=== PATIENT | male | born 1965 | race Caucasian/White ===

== ENCOUNTER 2024-10-19 18:11 | Emergency (ER) | payer BC, SELFPAY ==
[2024-10-19 18:46] VITALS: BP 134/81; PULSE 68; RESP 16; TEMP 36.6; O2SAT 99
--- NOTE | 2024-10-19 18:50 | ED.SKABFB ---
HPI - Skin/Abscess/Foreign Bdy General Chief complaint: Skin/Abscess/Foreign Body Stated complaint: Skin Irritation Lower Stomach Time Seen by Provider: 10/19/24 19:16 Source: patient and RN notes reviewed Mode of arrival: ambulatory Limitations: no limitations History of Present Illness HPI narrative: 58-year-old male presents with concern for redness, warmth at the site where he removed his insulin pump. Reports he removed it 2 days ago and noticed the redness yesterday. He reports it is slightly tender when pushed on. Denies fluctuation or drainage. She denies body aches, chills, fever, sweat, general malaise complaint: other (Redness) Related Data Home Medications ?Medication ?Instructions ?Recorded ?Confirmed ?Last Taken ?Type atorvastatin 80 mg tablet mg 10/19/24 Unknown History escitalopram oxalate 20 mg tablet mg 10/19/24 Unknown History etanercept 50 mg/mL (1 mL) mg subcut 10/19/24 Unknown History subcutaneous pen injector (Enbrel SureClick) folic acid 1 mg tablet 10/19/24 Unknown History insulin lispro 100 unit/mL 10/19/24 Unknown History subcutaneous solution (Humalog U-100 Insulin) methotrexate sodium 2.5 mg tablet mg 10/19/24 Unknown History Allergies Allergy/AdvReac Type Severity Reaction Status Date / Time No Known Allergies Allergy Verified 10/19/24 19:04 Review of Systems Review of Systems: CONSTITUTIONAL: Denies malaise, chills, sweats, or fever. EYES: Denies redness, or discharge. ENT: Denies rhinorrhea, congestion, swollen lips, swollen tongue CARDIOVASCULAR: Denies chest pain, palpitations, or edema. RESPIRATORY: Denies cough or dyspnea. GASTROINTESTINAL: Denies abdominal pain, nausea, vomiting SKIN: Reports redness, warmth, tenderness to the left abdomen MUSCULOSKELETAL: Denies joint pain or myalgia. NEUROLOGIC: Denies headache. All systems reviewed & are unremarkable except as noted in HPI and below PMFSH Comments At time of signature, agree with nursing past medical, surgical, social and family history. There is no relevant family history pertinent to the presenting complaint Exam Narrative: GENERAL: Well-appearing, well-nourished, and in no acute distress. HEAD: Normocephalic, atraumatic. EYES: PERRLA, conjunctivae clear, and EOMI. ENT: Mucous membranes moist. Oropharynx without edema, erythema or lesions. NECK: Supple. No lymphadenopathy CHEST: Clear to auscultation. No respiratory distress. HEART: Regular rate and rhythm. SKIN: Warm, dry. Approximately 8 cm x 6 cm area of erythema, warmth, tenderness with induration in the center. No fluctuation noted NEURO: Alert and oriented x3. PSYCH: Normal mood and affect Course Course Emergency Course: Patient is aware of diagnosis, understands and agrees to treatment plan. Anticipatory guidance given. Patient agrees to follow-up as directed and is aware of reasons to seek care at the emergency department. Portions of this record may have been created with voice recognition software Level of Care: Express Care Visit Vital Signs Vital signs: Vital Signs Temperature 97.8 F 10/19/24 18:46 Pulse Rate 68 10/19/24 18:46 Respiratory Rate 16 10/19/24 18:46 Blood Pressure 134/81 10/19/24 18:46 Pulse Oximetry 99 10/19/24 18:46 Temperature 97.8 F 10/19/24 18:46 Pulse Rate 68 10/19/24 18:46 Respiratory Rate 16 10/19/24 18:46 Blood Pressure 134/81 10/19/24 18:46 Pulse Oximetry 99 10/19/24 18:46 Reviewed. MDM - Skin/Abscess/Foreign Bdy MDM Narrative Medical decision making narrative: Does not appear at this time to be erythema multiforme, bullous, SJS, TEN; no evidence at this time to suggest RMSF, endocarditis or Lyme disease; patient looks well, nontoxic and is tolerating oral intake; no neurologic signs or symptoms; no headache, photophobia or neck pain; afebrile; appropriate for initial outpatient treatment; discussed the importance of follow-up, patient agrees; question, viral exanthema, contact dermatitis, allergic dermatitis, eczema, urticaria, [ xx ]. No soft palate or uvula edema, no tongue, lip edema or other mucosal involvement, no respiratory compromise, no stridor, no wheezing, no wheezing, no history of syncope, no hypotension, no nausea, vomiting, or diarrhea. Instructed patient to go to nearest ER immediately for any worsening symptoms including but not limited to: fever, spreading rash, pain, sore throat, headache, dizziness, chest pain, trouble breathing, or any symptoms concerning to the patient. Critical Care Time Critical Care Time Critical Care Time: No Discharge Plan Discharge Clinical Impression: Cellulitis Patient Disposition: Home, Self-Care Condition: Stable Instructions: Antibiotic Form, Cellulitis (ED) Additional Instructions: Please follow up with your Primary Care Doctor within 48-72 hours - call for an appointment. Rest and elevate affected area; apply moist heat 3-4 times daily for 10-15 minutes. Take Motrin 600mg every 8 hours with food for pain. Please take Antibiotics as directed. If you experience any worsening redness, swelling, streaking (red lines), fever or chills please go to the ER Patient Language: Danish Prescriptions: New cephalexin 500 mg capsule 500 mg PO QID 10 Days Qty: 40 0RF No Action atorvastatin 80 mg tablet methotrexate sodium 2.5 mg tablet folic acid 1 mg tablet insulin lispro [Humalog U-100 Insulin] 100 unit/mL solution escitalopram oxalate 20 mg tablet Enbrel SureClick 50 mg/mL (1 mL) pen injector SUBCUT Follow-up/Referrals: Gomez,Drew Horton MD [Primary Care Provider] - Time of Disposition: 19:22
== END 2024-10-19 19:23 | disposition home or self-care (01) ==
PROVIDERS: Emergency Provider Nurse Practitioner; PCP Internal Medicine Endocrinology, Diabetes & Metabolism
DX: L03.311 Cellulitis of abdominal wall (principal)
CPT/HCPCS: 99203; G0463

== ENCOUNTER 2024-11-15 08:20 | Emergency (ER) | payer BC, SELFPAY ==
--- NOTE | ~2024-11-15 | XR_ITS ---
EXAMINATION: XR chest 2V DATE: 11/15/2024 08:47 INDICATION: Cough and fever TECHNIQUE: PA and lateral views of the chest were obtained. COMPARISON: None FINDINGS: The lungs are clear with no focal airspace opacities, pulmonary edema, pleural effusion or pneumothor ax. The cardiomediastinal silhouette is normal. Mild thoracic spondylosis. IMPRESSION: 1. No acute cardiopulmonary disease. Reviewed, dictated and finalized at location B. NE ENGINE MACHINIST
--- NOTE | 2024-11-15 08:22 | ED_ITS ---
HPI - URI/Sore Throat General Chief Complaint: Upper Respiratory Infection Stated Complaint: Upper Respiratory Infection Time Seen by Provider: 11/15/24 08:28 Source: patient, RN notes reviewed and old records reviewed Mode of arrival: ambulatory Limitations: no limitations History of Present Illness HPI Narrative: 59-year-old male presents to the [facility] with sinus congestion, cough, decreased appetite. States that he has been running fevers since morning. No treatment prior to arrival. Reports recent travel via airplane. Onset (ago): day(s) (4) Treatments prior to arrival: none Related Data Home Medications ?Medication ?Instructions ?Recorded ?Confirmed ?Last Taken ?Type atorvastatin 80 mg tablet mg 10/19/24 Unknown History escitalopram oxalate 20 mg tablet mg 10/19/24 Unknown History etanercept 50 mg/mL (1 mL) mg subcut 10/19/24 Unknown History subcutaneous pen injector (Enbrel SureClick) folic acid 1 mg tablet 10/19/24 Unknown History insulin lispro 100 unit/mL 10/19/24 Unknown History subcutaneous solution (Humalog U-100 Insulin) methotrexate sodium 2.5 mg tablet mg 10/19/24 Unknown History Allergies Allergy/AdvReac Type Severity Reaction Status Date / Time No Known Allergies Allergy Verified 11/15/24 08:28 Review of Systems Review of Systems: All systems reviewed & are unremarkable except as noted in HPI and below Constitutional: Constitutional: Reports as per HPI, Reports body ache(s), Reports fatigue and Reports fever(s) ENT: Reports as per HPI Cardiovascular: Cardiovascular: Reports no additional cardiovascular complaints, Denies chest pain and Denies dyspnea Respiratory: Respiratory: Reports as per HPI, Denies chest congestion, Reports cough and Denies dyspnea Musculoskeletal: Musculoskeletal: Reports no additional musculoskeletal complaints Integumentary/Breasts: Skin/Breast: Reports system reviewed and no additional complaints, except as docu PMFSH Past Medical History Medical History History of high cholesterol Comments At the time of my signature, I reviewed and agree with the nursing past medical, surgical, social, and family history. There is no relevant family history pertinent to the patient complaint. Exam Const: General: cooperative, healthy appearing, comfortable, no acute distress, well developed, alert and well nourished Nutritional Appearance: well nourished Orientation/consciousness: patient oriented x3 Limitations: no limitations HENMT: Head: normal to inspection Ears: hearing grossly normal bilaterally, external ears normal, TM's normal bilaterally, EAC's normal, mastoids normal and no periauricular adenopathy Face/Nose/Sinus: Normal external nose present, Normal nares present, Normal nasal mucous membranes and turbinates present, No nasal discharge present, normal facial exam and face symmetric Mouth: Yes Normal oral and palatal mucosa present, Yes lip normal, Yes tongue normal and Yes moist mucous membranes Throat: posterior oropharynx normal, uvula midline and no uvular edema Eyes: General: appearance normal, both eyes and all related structures Alig nment and Position: alignment normal Neck: Neck: normal visual inspection, full ROM, no lymphadenopathy and no meningeal signs Chest: Chest palpation & inspection: normal inspection of the chest Resp: Effort & Inspection: normal respiratory effort and able to speak in complete sentences Auscultation: clear to auscultation bilaterally, no crackles, no rales, no rhonchi and no wheezes Cardio: Rate: regular rate Skin: General skin exam: normal color and no rashes or lesions noted Neuro: General: patient oriented x3, gait normal, moves all extremities and no meningeal signs Cognition (Neuro): normal cognition Speech: normal speech Gait exam (Neuro): Normal gait present Extrem: General: normal to inspection, full ROM, capillary refill normal and normal gait Psych: Appearance: grossly normal and well kempt Mental Status: mental status grossly normal Speech and movement: Normal speech and movement present and Clear speech present Affect: normal affect Attitude: cooperative Course Course Level of Care: Express Care Visit Vital Signs Vital signs: Vital Signs Temperature 97.7 F 11/15/24 08:28 Pulse Rate 100 11/15/24 08:28 Respiratory Rate 18 11/15/24 08:28 Blood Pressure 132/74 11/15/24 08:28 Pulse Oximetry 98 11/15/24 08:28 Oxygen Delivery Room Air 11/15/24 08:28 Temperature 97.7 F 11/15/24 08:28 Pulse Rate 100 11/15/24 08:28 Respiratory Rate 18 11/15/24 08:28 Blood Pressure 132/74 11/15/24 08:28 Pulse Oximetry 98 11/15/24 08:28 Oxygen Delivery Room Air 11/15/24 08:28 Reviewed MDM - URI/Sore Throat MDM Narrative Medical decision making narrative: Patient sitting comfortably in exam room. Nontoxic vitals stable. Patient in no acute distress. Patient presents with complaints 4 day history of URI symptoms. Chest x-ray was negative, COVID negative. Flu A positive. Discussed [id number] treatments. Patient appropriate for outpatient treatment and follow-up Discharge instructions reviewed with patient, as well as provided in writing per nursing staff. The instructions also include specific and strict return/GO TO THE ER as well as f/u information. All questions have been answered, and the patient deny any further questions with discharge and discharge plan. Some parts of this dictation were generated by voice recognition software and may contain typographical and/or grammatical inaccuracies. Differential Diagnosis Differential diagnosis: Likely upper respiratory infection, otitis media, sinusitis, viral infection, bronchitis, influenza and pharyngitis Lab Data Labs: Lab Results 11/15/24 Range/Units 08:58 POC Influenza A Ag Positive (Negative) POC Influenza B Ag Negative (Negative) POC SARS CoV-2 Ag Negative (Negative) Reviewed Imaging Data Radiologist's impression: EXAMINATION: XR chest 2V DATE: 11/15/2024 08:47 INDICATION: Cough and fever TECHNIQUE: PA and lateral views of the chest were obtained. COMPARISON: None FINDINGS: The lungs are clear with no focal airspace opacities, pulmonary edema, pleural effusion or pneumothorax. The cardiomediastinal silhouette is normal. Mild thoracic spondylosis. IMPRESSION: 1. No acute cardiopulmonary disease. Critical Care Time Critical Care Time Critical Care Time: No Discharge Plan Discharge Clinical Impression: Influenza A Patient Disposition: Home, Self-Care Condition: Stable Instructions: Antibiotic Form, Influenza (ED) Additional Instructions: Your rapid COVID test were negative Your rapid flu test was positive for influenza A Your symptoms are due to a viral illness, which is not treated with antibiotics . Typically viral infections last 7-10 days, can linger for couple of weeks. It is very important to treat your symptoms. Drink plenty of water, Gatorade, Pedialyte, ice pops or Jell-O. -Alternate Tylenol and Motrin per package directions for fever or pain. You can alternate every 4 hours -Antihistamine medication such as Zyrtec/Claritin/Bri during the day can help improve symptoms. -doing daily nasal irrigations can help relieve pressure your sinuses. Things like a Neti pot -Use Flonase twice a day for 5 days then daily to help reduce the inflammation and dry up your sinuses. -You can also use Mucinex. Be sure to drink plenty of water with this medication at least 8 ounces with every dose and it is important to drink 8 to 10 glasses of water per day. Water is a natural decongestant -Eat and drink things that are easy to swallow, like tea or soup, or popsicles. -Oral rinses such as: Salt water gargles and/or may use topical anesthetic (eg. Chloraseptic spray) or lozenges to relieve dryness or throat pain). -Frequent hand washing or hand special needs teacher is one of the best ways to prevent spread of infection. -Using a vaporizer or humidifier at night will also help thin secretions and help with coughing up phlegm. -Follow up with primary care provider in 7-10 days if condition is not improving - For new or worsening symptoms go directly to the nearest ER Patient Language: Cook Islander Prescriptions: No Action atorvastatin 80 mg tablet methotrexate sodium 2.5 mg tablet folic acid 1 mg tablet insulin lispro [Humalog U-100 Insulin] 100 unit/mL solution escitalopram oxalate 20 mg tablet Enbrel SureClick 50 mg/mL (1 mL) pen injector SUBCUT Follow-up/Referrals: Gomez,Drew Horton MD [Primary Care Provider] - 2 Weeks ([facility] follow-up) Stand Alone Forms: Work/School Release IP Time of Disposition: 08:57
[2024-11-15 08:28] VITALS: BP 132/74; PULSE 100; RESP 18; TEMP 36.5; O2SAT 98
--- OUTSIDE RECORDS SUMMARY | 2024-11-15 08:34 | XMS_ITS | Encounter Summary ---
Author Organization [facility] Healthcare Address [address] [place] [address] Care Team Providers Care Internet Sales Consultant Name Role Phone Navjot Peng MD Primary Care Provider Drew Dyer MD Primary Care Provider + Reason for Referral * Diagnostic Imaging (Routine) - Closed Specialty Diagnoses / Procedures Referred By Contac t Referred To Contact Diagnoses Cough Procedures XR Chest Pa Lateral 2 Views Rose Traylor DO Phone: tel: fax: [address] [phone] Referral ID Status Reason Start Date Expiration Date Visits Re quested Visits Authorized [id number] Closed 06/25/2018 01/04/2020 1 1 Encounter Details Date Type Department Care Team (Late st Contact Info) Description 06/25/2018 Community Orders [facility] EpicCare Link Rose Traylor DO [id number] [facility] [address] [place] [address] Cough (Primary Dx) Social History Tobacco Use Types Packs/Day Years Used Date Smoking Tobacco: Never Sex and Gender Information Value Date Recorded Sex Assigned at Not on file Legal Sex Male 3:21 AM [employer] Gender Identity Male 11/13/2021 12:11 PM [employer] Sexual Orientation Straight 11/13/2021 12 :12 PM [employer] documented as of this encounter Plan of Treatment Not on file documented as of this encounter Results * XR Chest Pa Lateral 2 Views (06/25/2018 12:50 PM CDT) Anatomical Region Laterality Modality Body, Chest N/A Computed Radiogr aphy 06/25/2018 1:19 PM CDT Impressions 06/25/2018 1:19 PM CDT No prior chest radiographs available for comparison. The lungs are clear. No focal consolidation, pulmonary edema, pneumothorax or pleural effusion seen. Heart size and mediastinal contour within normal limits. Electronically signed by: Oumar Mejia M.D. Narrative 06/25/2018 1:19 PM CDT EXAMINATION: 2 view chest radiograph Procedure Note Oumar Mejia MD - 06/25/2018 EXAMINATION: 2 view chest radiograph IMPRESSION: No prior chest radiographs available for comparison. The lungs are clear. No focal consolidation, pulmonary edema, pneumothorax or pleural effusion seen. Heart size and mediastinal contour within normal limits. Electronically signed by: Oumar Mejia M.D. Rose Traylor DO IMG XR PROCEDURES Final Result documented in this encounter Visit Diagnoses Diagnosis Cough- Primary Cough documented in this encounter Care Teams Internet Sales Consultant Relationship Specialty Start Date End Date Navjot Peng MD [address] [id number] PCP - General 03/10/17 09/06/20 Drew Dyer MD [address] [address] PCP - General Endocrinology Diabetes & Metabolism 09/07/20 documented as of this encounter
--- OUTSIDE RECORDS SUMMARY | 2024-11-15 08:34 | XMS_ITS | Clinical Summary ---
Author Organization [facility] Address [address] [place] [address] Care Team Providers Care Repairer Switchgear Name Role Phone Drew Dyer MD Primary Care Provider + Allergies No known active allergies Medications naproxen (ALEVE) 220 mg tablet Take by mouth 2 (two) times a day with meals Active glucagon (Baqsimi) 3 mg/actuation spray,non-aeroso l Administer 3 mg into one nostril as needed (for use in case of emergency for hypoglycemia) 1 each 2 1 Active Accu-Chek Guide test strips strip USE TO TEST BLOOD SUGAR 6 TIMES PER DAY 600 strip 3 2 Active Additional Information Patient not taking.Reported on 09/09/2024 blood-glucose transmitter (Guardian Link 3 Transmitter) device Change every 7 days 1 each 2 Active Guardian Sensor 3 device CHANGE SENSOR AFTER NO MORE THAN 7 DAYS 15 each 3 3 Active atorvastatin (LIPITOR) 80 mg tablet TAKE 1 TABLET DAILY 90 tablet 3 4 Active ALPRAZolam (XANAX) 0.25 mg tablet Take 1 tablet (0.25 mg total) by mouth nightly as needed for anxiety 30 tablet 4 02/09/20 25 Active insulin lispro (HumaLOG) 100 unit/mL vial for injectionIndicat ions:Type 1 diabetes mellitus without complication (HCC) INJECT 90 UNITS UNDER THE SKIN DAILY 90 mL 3 4 Active escitalopram (LEXAPRO) 20 mg tablet TAKE 1 TABLET DAILY 90 tablet 3 4 Active methotrexate 2.5 mg tabletIndication s:Other - non-oncology Take 8 tablets (20 mg total) by mouth every 7 days 96 tablet 1 4 Active folic acid (FOLVITE) 1 mg tabletIndication s:Psoriatic arthritis (HCC),High risk medication use Take 1 tablet (1,000 mcg total) by mouth daily 90 tablet 1 4 Active etanercept (EnbreL SureClick) 50 mg/mL (1 mL) pen injectorIndicati ons:High risk medication use,Psoriatic arthritis (HCC) Inject 1 mL (50 mg total) under the skin every 7 days 4 mL 6 5 Active Active Problems Problem Noted Date Diagnosed Date Anxiety 08/29/2022 Type 1 diabetes mellitus without complication Overview (12/06/2020): Conitnue CSII and CGM Assessment & Plan (10/29/2021 2:59 PM COAL HAULER): A1C 6.8% today On CSII and CGM, continue Current on labs Current on eye exam Continue current Reviewed pump failure plan and gave sample of Tresiba Mixed hyperlipidemia 12/06/2020 Overview (12/06/2020): Continue atorvastatin, increase to 80 mg a day repatha Resolved Problems Problem Noted Date Diagnosed Date Resolved Date Right inguinal pain 04/18/2023 03/09/20 24 Assessment & Plan (04/18/2023 9:25 AM CDT): US Reinforced proper body mechanics Encounters Date Type Department Care Team Description 09/30/2024 Telephone [facility] [address] [place] [address] Nori Martinez RPh 09/09/2024 1:00 PM COAL HAULER Office Visit [facility] Rheumatology [facility] [facility] 5[address] [place] [address] [place] [address] Mally Escalona MD Psoriatic arthritis (HCC) (Primary Dx); High risk medication use; Transaminitis 09/09/2024 12:15 PM COAL HAULER Office Visit [facility] [address] [place] [phone] Drew Dyer MD Type 1 diabetes mellitus without complication (HCC) (Primary Dx); Mixed hyperlipidemia from Last 3 Months Immunizations Immunization Administration Dates Next Due Influenza, Quadrivalent, Susanna l Culture-based MDCK, Preservative Free, Antibiotic Free, Intramuscular 06/23/2020 Pfizer SARS-CoV-2 Monovalent Vaccination (12+ Yrs) DESOUZA-READY TO USE 02/07/2022 Medical History Medical History Date Comments Other detention (current) drug therapy High risk medication use - (Added by TW Conv) Diabetes mellitus (HCC) type I Psoriatic arthritis (HCC) Psoriasis Family History Medical History Relation Name Comments Lung cancer Father Hypertension Mother Cancer Other Family history of malignant neoplasm - (Added by TW Conv) Relation Name Status Comments Father Mother Other Social History Tobacco Use Types Packs/Day Years Used Date Smoking Tobacco: Never Smokeless Tobacco: Never Tobacco Cessation:Counseling Given: Not Answered PHQ-2 Answer Date Recorded PHQ-2 Total Score (If total score is 3 or more points, staff should administer the PHQ-9) 4 04/29/2022 Sex and Gender Information Value Date Recorded Sex Assigned at Not on file Legal Sex Male 3:21 AM COAL HAULER Gender Identity Male 11/13/2021 12:11 PM COAL HAULER Sexual Orientation Straight 11/13/2021 12 :12 PM COAL HAULER Obstetrics History Last Filed Vital Signs Vital Sign Reading Time Taken Comments Blood Pressure 123/73 09/09/2024 1:02 PM COAL HAULER Pulse 70 09/09/2024 1:02 PM COAL HAULER Temperature 36.3 C (97.4 F) 09/09/2024 1:02 PM COAL HAULER Respiratory Rate - - Oxygen Saturation 98% 09/09/2024 12:22 PM COAL HAULER Inhaled Oxygen Concentration - - Weight 95.3 kg (210 lb) 09/09/2024 1:02 PM COAL HAULER Height 191.8 cm (6' 3.5 ) 09/09/2024 1:02 PM COAL HAULER Body Mass Index 25.9 09/09/2024 1:02 PM COAL HAULER Plan of Treatment Health Maintenance Due Date Last Done Comments Albumin Creatinine Ratio, Urine 1967 Colon Cancer Screening-Colonoscopy 1967 Foot Exam 1967 Dilated Eye Exam 1977 DTaP/Tdap/Td Vaccine (1 - Tdap) 1978 Hepatitis B Screening 1985 Regular Well Visit/Exam 18-64 1985 Pneumococcal vaccine <65 (1 of 2 - PCV) 1986 Zoster Vaccine (1 of 2) 1986 TSH Level 09/07/2021 09/07/2020 Prostate Cancer Screening-PSA 09/07/2022 09/07/2020 Depression Screening 04/29/2023 04/29/2022, 04/29/20 22 Covid-19 Vaccine (2023-2 5 season) 2024 08/18/2022, 02/07/2022, 07/02/2021, Additional history exists Influenza Vaccine (#1) 2024 07/07/2022, 2019 Hemoglobin A1C 03/10/2025 09/09/2024, 02/20, 08/26/2023, Additional history exists eGFR 08/04/2025 08/04/2024, 02/20, 09/16/2023, Additional history exists Lipid Panel 09/09/2025 09/09/2024, 1201/2023, 03/19/2023, Additional history exists Hepatitis C Screening Completed 08/14/2021 , 10/22/2019, 03/30/2015 Colon Cancer Screening-DNA Stool Discontinued 03/26/20 24, 12/26/2020 Colon Cancer Screening-FIT Discontinued 03/26/2024, Procedures Procedure Name Priority Date/Time Associated Diagnosis Comments HEPATIC FUNCTION PANEL Routine 10/06/2024 7:31 AM COAL HAULER High risk medication use POCT GLUCOSE [id number] Routine 09/09/2024 12 :46 PM COAL HAULER Type 1 diabetes mellitus without complication (HCC) Mixed hyperlipidemia POCT LIPID PANEL Routine 09/09/2024 12:4 6 PM COAL HAULER Type 1 diabetes mellitus without complication (HCC) Mixed hyperlipidemia POCT HEMOGLOBIN A1C Routine 09/09/2024 1 2:46 PM COAL HAULER Type 1 diabetes mellitus without complication (HCC) Mixed hyperlipidemia HEPATIC FUNCTION PANEL Routine 09/01/2024 1:32 PM COAL HAULER Psoriatic arthritis (HCC) High risk medication use COMPREHENSIVE METABOLIC PANEL Routine 08/04/2024 12:20 PM COAL HAULER High risk medication use STOOL DNA COLOGUARD Routine 03/26/2024 7:20 AM CDT Colon cancer screening HEPATITIS C ANTIBODY Routine 08/14/2021 1:15 PM COAL HAULER Psoriatic arthritis (CMS/HCC) (HCC) High risk medication use TSH Routine 09/07/2020 9:50 AM COAL HAULER Type 1 diabetes mellitus without complication (CMS/HCC) Mixed hyperlipidemia PSA SCREEN Routine 09/07/2020 9:50 AM COAL HAULER Special screening for malignant neoplasm of prostate from Last 3 Months or Most Recently Relevant to Health Maintenance Results * Hepatic function panel (10/06/2024 7:31 AM COAL HAULER) Pathologist [facility] Protein, Total 6.9 6.4 - 8.4 g/dL [facility] Albumin 4.1 3.6 - 5.1 g/dL [facility] Globulin 2.8 2.2 - 4.0 g/dL (calc) [facility] Alb/glob ratio 1.5 0.9 - 2.3 (calc) [facility] Bilirubin, total 0.7 0.2 - 1.2 mg/dL [facility] Bilirubin, direct 0.1 < OR = 0.2 mg/dL [facility] Bilirubin, indirect 0.6 0.2 - 1.2 mg/dL (calc) [facility] Alk phos 37 35 - 144 U/L [facility] AST 35 10 - 35 U/L [facility] ALT (SGPT) 36 9 - 46 U/L [facility] Blood 10/06/2024 7:31 AM COAL HAULER 10/06/2024 7:31 AM COAL HAULER Mally Escalona MD LAB BLOOD ORDERABLES Final Result [facility] [address] [place] [address] * POCT glucose (09/09/2024 12:46 PM COAL HAULER) Glucose Blood, POC 80 mg/dL Blood 09/09/2024 12:4 6 PM COAL HAULER Drew Dyer MD POINT OF CARE TEST ORDER RENNY Final Result * POCT hemoglobin A1c (09/09/2024 12:46 PM COAL HAULER) Hemoglobin A1C, POC 7.7 4.0 - 5.6 % Capillary blood 09/09/2024 1 2:46 PM COAL HAULER Result [facility] Drew Dyer MD POINT OF CARE TEST ORDER RENNY Final Result * POCT lipid panel (09/09/2024 12:46 PM COAL HAULER) Cholesterol, POC 198 mg/dL HDL, POC 34 mg/dL Triglycerides, POC 111 mg/dL LDL Cholesterol POC 141 mg/dL Chol/HDL Ratio, POC 5.8 Non-HDL Cholesterol, POC 163 mg/dL Cholesterol Total, POC 198 mg/dL Capillary blood 09/09/2024 1 2:46 PM COAL HAULER Result [facility] Drew Dyer MD POINT OF CARE TEST ORDER RENNY Final Result * (ABNORMAL) Hepatic function panel (09/01/2024 1:32 PM COAL HAULER) Protein, Total 7.2 6.4 - 8.4 g/dL [facility] Albumin 4.5 3.6 - 5.1 g/dL [facility] Globulin 2.7 2.2 - 4.0 g/dL (calc) [facility] Alb/glob ratio 1.7 0.9 - 2.3 (calc) [facility] Bilirubin, total 1.1 0.2 - 1.2 mg/dL [facility] Bilirubin, direct 0.2 < OR = 0.2 mg/dL [facility] Bilirubin, indirect 0.9 0.2 - 1.2 mg/dL (calc) [facility] Alk phos 41 35 - 144 U/L [facility] AST 60(H) 10 - 35 U/L [facility] ALT (SGPT) 85(H) 9 - 46 U/L [facility] Blood 09/01/2024 1:32 PM COAL HAULER 09/01/2024 1:33 PM COAL HAULER Mally Escalona MD LAB BLOOD ORDERABLES Final Result [facility] [address] [place] [address] * (ABNORMAL) Comprehensive metabolic panel (08/04/2024 12:20 PM COAL HAULER) [facility] Glucose 153(H) 65 - 99 mg/dL [facility] Comment: Fasting reference interval For someone without known diabetes, a glucose value >125 mg/dL indicates that they may have diabetes and this should be confirmed with a follow-up test. BUN 20 7 - 25 mg/dL [facility] Creatinine 1.22 0.70 - 1.30 mg/dL [facility] eGFR 70 > OR = 60 mL/min/1.7 3m2 [facility] BUN/creat ratio SEE NOTE: (calc) [facility] Comment: Not Reported: BUN and Creatinine are within reference range. Sodium 140 135 - 146 mmol/L [facility] Potassium, pl 4.5 3.5 - 5.3 mmol/L [facility] Chloride 104 98 - 110 mmol/L [facility] CO2 31 20 - 32 mmol/L [facility] Calcium 9.6 8.6 - 10.3 mg/dL [facility] Protein, sr 6.6 6.1 - 8.1 g/dL [facility] Albumin 4.3 3.6 - 5.1 g/dL [facility] GLOBULIN 2.3 1.9 - 3.7 g/dL (calc) [facility] Alb/glob ratio 1.9 1.0 - 2.5 (calc) [facility] Bilirubin, total 1.1 0.2 - 1.2 mg/dL [facility] Alk phos 45 35 - 144 U/L [facility] AST 47(H) 10 - 35 U/L [facility] ALT (SGPT) 48(H) 9 - 46 U/L [facility] Blood 08/04/2024 12:2 0 PM COAL HAULER 08/04/2024 12:21 PM COAL HAULER us Mally Escalona MD LAB BLOOD ORDERABLES Final Result [facility] [address] [place] [address] * Stool DNA - Cologuard (03/26/2024 7:20 AM CDT) Stool DNA - Cologuard Negative Negative [facility] (CLIA #:[id number]) Comment: NEGATIVE TEST RESULT. A negative Cologuard result indicates a low likelihood that a colorectal cancer (CRC) or advanced adenoma (adenomatous polyps with more advanced pre-malignant features) is present. The chance that a person with a negative Cologuard test has a colorectal cancer is less than 1 in 1500 (negative predictive value >99.9%) or has an advanced adenoma is less than 5.3% (negative predictive value 94.7%). These data are based on a prospective cross-sectional study of 10,000 individuals at average risk for colorectal cancer who were screened with both Cologuard and colonoscopy. (Mitchell Bourgeois al, N Engl J Med 2014;370(14):1418-1114) The normal value (reference range) for this assay is negative. COLOGUARD RE-SCREENING RECOMMENDATION: Periodic colorectal cancer screening is an important part of preventive healthcare for asymptomatic individuals at average risk for colorectal cancer. Following a negative Cologuard result, the [employer] and U.S. Multi-Society Task Force screening guidelines recommend a Cologuard re-screening interval of 3 years. References: [employer] Guideline for Colorectal Cancer Screening: https://www.cancer.org/cancer/xojtt-nnhway-pamkqo/hwlmgxhag-ibzwezcgo-pelhwom/ac s-rec ommendations.html.; Alexx DK, Benny FAIRBANKS, Delaney FrenchK, Colorectal Cancer Screening: Recommendations for Physicians and Patients from the U.S. Multi-Society Task Force on Colorectal Cancer Screening , Am J Gastroenterology 2017; 112:9226-7691. TEST DESCRIPTION: Composite algorithmic analysis of stool DNA-biomarkers with hemoglobin immunoassay. Quantitative values of individual biomarkers are not reportable and are not associated with individual biomarker result reference ranges. Cologuard is intended for colorectal cancer screening of adults of either sex, 45 years or older, who are at average-risk for colorectal cancer (CRC). Cologuard has been approved for use by the U.S. FDA. The performance of Cologuard was established in a cross sectional study of average-risk adults aged 50-84. Cologuard performance in patients ages 45 to 49 years was estimated by sub-group analysis of near-age groups. Colonoscopies performed for a positive result may find as the most clinically significant lesion: colorectal cancer [4.0%], advanced adenoma (including sessile serrated polyps greater than or equal to 1cm diameter) [20%] or non- advanced adenoma [31%]; or no colorectal neoplasia [45%]. These estimates are derived from a prospective cross-sectional screening study of 10,000 individuals at average risk for colorectal cancer who were screened with both Cologuard and colonoscopy. (Mitchell Armstrong, N Engl J Med 2014;370(14):3716-9460.) Cologuard may produce a false negative or false positive result (no colorectal cancer or precancerous polyp present at colonoscopy follow up). A negative Cologuard test result does not guarantee the absence of CRC or advanced adenoma (pre-cancer). The current Cologuard screening interval is every 3 years. ([place] [employer] and U.S. Multi-Society Task Force). Cologuard performance data in a 10,000 patient pivotal study using colonoscopy as the reference method can be accessed at the following location: www.Datam.com/results. Additional description of the Cologuard test process, warnings and precautions can be found at www.hereOogorderbird AGrd.com. Stool 03/26/2024 7:20 AM CDT 03/27/2024 10:17 AM CDT Drew Dyer MD LAB BODY FLUIDS AND STOO LS ORDERABLES Final Result [facility] (CLIA #:[id number]) [place] [address] * Hepatitis C antibody (08/14/2021 1:15 PM COAL HAULER) Pathologist [facility] Hep C Ab Nonreactive Nonreactive [facility] Comment:Antibodies to HCV no t detected. Does NOT exclude the possibility of recent exposure to HCV. Blood 08/14/2021 1:15 PM COAL HAULER 08/14/2021 4:48 PM COAL HAULER Evans Nieto MD LAB MICROBIOLOGY - GENERAL ORDER RENNY Edited Result - Final Performing Organization Address City/[facility] Co de Phone Number [facility] Department [place] [address] * PSA screen (09/07/2020 9:50 AM COAL HAULER) PSA 1.5 0.0 - 4.0 ng/mL [facility] - 01 Comment: Kayla ECLIA methodology. According to the [employer], Serum PSA should decrease and remain at undetectable levels after radical prostatectomy. The AUA defines biochemical recurrence as an initial PSA value 0.2 ng/mL or greater followed by a subsequent confirmatory PSA value 0.2 ng/mL or greater. Values obtained with different assay methods or kits cannot be used interchangeably. Results cannot be interpreted as absolute evidence of the presence or absence of malignant disease. Blood specimen (specimen) 09/07/2020 9:50 AM COAL HAULER 09/07/2020 Narrative [facility] - 09/08/2020 8:12 AM COAL HAULER Performed at: [facility] [id number] [employer] Liaison Officer: Rodney Torres PhD, Phone: [phone] Drew Dyer MD LAB BLOOD ORDERABLES Fin al Result Performing Organization Address [facility] de Phone Number [facility] - 01 * TSH (09/07/2020 9:50 AM COAL HAULER) [facility] TSH 1.380 0.450 - 4.500 uIU/mL [facility] - 01 Blood specimen (specimen) 09/07/2020 9:50 AM COAL HAULER 09/07/2020 Narrative [facility] - 09/08/2020 8:12 AM COAL HAULER Performed at: [address] [place] [id number] [employer] Officer: Rodney Torres PhD, Phone: [phone] Drew Dyer MD LAB BLOOD ORDERABLES Fin al Result Performing Organization Address City/[facility] de Phone Number [facility] - 01 from Last 3 Months or Most Recently Relevant to Health Maintenance Insurance [phone] [id number] (Work) [address] [place] [address] [facility] CHOICE PLUS [facility] HMO/PPO Address: [address] [address] [place] [address] [place] [facility] CHOICE PLUS [facility] HMO/PPO Address: [address] [address] [place] [address] Care Teams Repairer Switchgear Relationship Specialty Start Date End Date Drew Dyer MD [address] [place] [address] PCP - General Endocrinology Diabetes & Metabolism 09/07/20
--- OUTSIDE RECORDS SUMMARY | 2024-11-15 08:34 | XMS_ITS | Referral Summary ---
Author Organization [facility] Address [address] [place] [address] Care Team Providers Care Log Buyer Name Role Phone Drew Dyer MD Primary Care Provider + Encounters Date Type Department Care Team Description 09/30/2024 Telephone [facility] [address] [place] [address] Nori Martinez RPh 09/09/2024 12:15 PM TERMINAL OPERATIONS SUPERVISOR Office Visit [facility] [address] [place] [address] Drew Dyer MD Type 1 diabetes mellitus without complication (HCC) (Primary Dx); Mixed hyperlipidemia 09/09/2024 1:00 PM TERMINAL OPERATIONS SUPERVISOR Office Visit [facility] [address] [facility] 5th [place] [address] [place] [address] Mally Escalona MD Psoriatic arthritis (HCC) (Primary Dx); High risk medication use; Transaminitis from Last 3 Months Allergies No known active allergies Medications naproxen [...] CGM Assessment & Plan (10/29/2021 2:59 PM TERMINAL OPERATIONS SUPERVISOR): A1C 6.8% today On CSII and CGM, [...] AM CDT): US Reinforced proper body mechanics Immunizations Immunization Administration Dates Next Due Influenza, Quadrivalent, Susanna l Culture-based MDCK, Preservative Free, Antibiotic Free, Intramuscular 06/23/2020 Pfizer SARS-CoV-2 Monovalent Vaccination (12+ Yrs) DESOUZA-READY TO USE 02/07/2022 Social History Tobacco Use Types Packs/Day Years Used Date Smoking Tobacco: Never Smokeless Tobacco: Never Tobacco Cessation:Counseling Given: Not Answered PHQ-2 Answer Date Recorded PHQ-2 Total Score (If total score is 3 or more points, staff should administer the PHQ-9) 4 04/29/2022 Sex and Gender Information Value Date Recorded Sex Assigned at Not on file Legal Sex Male 3:21 AM TERMINAL OPERATIONS SUPERVISOR Gender Identity Male 11/13/2021 12:11 PM TERMINAL OPERATIONS SUPERVISOR Sexual Orientation Straight 11/13/2021 12 :12 PM TERMINAL OPERATIONS SUPERVISOR Last Filed Vital Signs Vital Sign Reading Time Taken Comments Blood Pressure 123/73 09/09/2024 1:02 PM TERMINAL OPERATIONS SUPERVISOR Pulse 70 09/09/2024 1:02 PM TERMINAL OPERATIONS SUPERVISOR Temperature 36.3 C (97.4 F) 09/09/2024 1:02 PM TERMINAL OPERATIONS SUPERVISOR Respiratory Rate - - Oxygen Saturation 98% 09/09/2024 12:22 PM TERMINAL OPERATIONS SUPERVISOR Inhaled Oxygen Concentration - - Weight 95.3 kg (210 lb) 09/09/2024 1:02 PM TERMINAL OPERATIONS SUPERVISOR Height 191.8 cm (6' 3.5 ) 09/09/2024 1:02 PM TERMINAL OPERATIONS SUPERVISOR Body Mass Index 25.9 09/09/2024 1:02 PM TERMINAL OPERATIONS SUPERVISOR Plan of Treatment Not on file Procedures Procedure Name Priority Date/Time Associated Diagnosis Comments HEPATIC FUNCTION PANEL Routine 10/06/2024 7:31 AM TERMINAL OPERATIONS SUPERVISOR High risk medication use POCT GLUCOSE 42659 Routine 09/09/2024 12 :46 PM TERMINAL OPERATIONS SUPERVISOR Type 1 diabetes mellitus without complication (HCC) Mixed hyperlipidemia POCT LIPID PANEL Routine 09/09/2024 12:4 6 PM TERMINAL OPERATIONS SUPERVISOR Type 1 diabetes mellitus without complication (HCC) Mixed hyperlipidemia POCT HEMOGLOBIN A1C Routine 09/09/2024 1 2:46 PM TERMINAL OPERATIONS SUPERVISOR Type 1 diabetes mellitus without complication (HCC) Mixed hyperlipidemia HEPATIC FUNCTION PANEL Routine 09/01/2024 1:32 PM TERMINAL OPERATIONS SUPERVISOR Psoriatic arthritis (HCC) High risk medication use COMPREHENSIVE METABOLIC PANEL Routine 08/04/2024 12:20 PM TERMINAL OPERATIONS SUPERVISOR High risk medication use STOOL DNA COLOGUARD Routine 03/26/2024 7:20 AM CDT Colon cancer screening HEPATITIS C ANTIBODY Routine 08/14/2021 1:15 PM TERMINAL OPERATIONS SUPERVISOR Psoriatic arthritis (CMS/HCC) (HCC) High risk medication use TSH Routine 09/07/2020 9:50 AM TERMINAL OPERATIONS SUPERVISOR Type 1 diabetes mellitus without complication (CMS/HCC) Mixed hyperlipidemia PSA SCREEN Routine 09/07/2020 9:50 AM TERMINAL OPERATIONS SUPERVISOR Special screening for malignant neoplasm of prostate from Last 3 Months or Most Recently Relevant to Health Maintenance Results * Hepatic function panel (10/06/2024 7:31 AM TERMINAL OPERATIONS SUPERVISOR) Pathologist [facility] Protein, Total 6.9 6.4 - 8.4 g/dL [facility] Albumin 4.1 3.6 - 5.1 g/dL [facility] Globulin 2.8 2.2 - 4.0 g/dL (calc) [facility] Alb/glob ratio 1.5 0.9 - 2.3 (calc) [facility] Bilirubin, total 0.7 0.2 - 1.2 mg/dL [facility] Bilirubin, direct 0.1 < OR = 0.2 mg/dL [facility] Bilirubin, indirect 0.6 0.2 - 1.2 mg/dL (calc) [facility] Alk phos 37 35 - 144 U/L [facility] AST 35 10 - 35 U/L [facility] ALT (SGPT) 36 9 - 46 U/L [facility] Blood 10/06/2024 7:31 AM TERMINAL OPERATIONS SUPERVISOR 10/06/2024 7:31 AM TERMINAL OPERATIONS SUPERVISOR Result [facility] Mally Escalona MD LAB BLOOD ORDERABLES Final Result [facility] [address] [place] [address] * POCT glucose (09/09/2024 12:46 PM TERMINAL OPERATIONS SUPERVISOR) Glucose Blood, POC 80 mg/dL Blood 09/09/2024 12:4 6 PM TERMINAL OPERATIONS SUPERVISOR Result [facility] Drew Dyer MD POINT OF CARE TEST ORDER RENNY Final Result * POCT hemoglobin A1c (09/09/2024 12:46 PM TERMINAL OPERATIONS SUPERVISOR) Hemoglobin A1C, POC 7.7 4.0 - 5.6 % Capillary blood 09/09/2024 1 2:46 PM TERMINAL OPERATIONS SUPERVISOR Result [facility] Drew Dyer MD POINT OF CARE TEST ORDER RENNY Final Result * POCT lipid panel (09/09/2024 12:46 PM TERMINAL OPERATIONS SUPERVISOR) Cholesterol, POC 198 mg/dL HDL, POC 34 mg/dL Triglycerides, POC 111 mg/dL LDL Cholesterol POC 141 mg/dL Chol/HDL Ratio, POC 5.8 Non-HDL Cholesterol, POC 163 mg/dL Cholesterol Total, POC 198 mg/dL Capillary blood 09/09/2024 1 2:46 PM TERMINAL OPERATIONS SUPERVISOR Drew Dyer MD POINT OF CARE TEST ORDER RENNY Final Result * (ABNORMAL) Hepatic function panel (09/01/2024 1:32 PM TERMINAL OPERATIONS SUPERVISOR) Pathologist [facility] Protein, Total 7.2 6.4 - 8.4 g/dL [facility] Albumin 4.5 3.6 - 5.1 g/dL [facility] Globulin 2.7 2.2 - 4.0 g/dL (calc) [facility] Alb/glob ratio 1.7 0.9 - 2.3 (calc) [facility] Bilirubin, total 1.1 0.2 - 1.2 mg/dL [facility] Bilirubin, direct 0.2 < OR = 0.2 mg/dL [facility] Bilirubin, indirect 0.9 0.2 - 1.2 mg/dL (calc) [facility] Alk phos 41 35 - 144 U/L [facility] AST 60(H) 10 - 35 U/L [facility] ALT (SGPT) 85(H) 9 - 46 U/L [facility] Blood 09/01/2024 1:32 PM TERMINAL OPERATIONS SUPERVISOR 09/01/2024 1:33 PM TERMINAL OPERATIONS SUPERVISOR us Mally Escalona MD LAB BLOOD ORDERABLES Final Result [facility] [address] [place] [address] * (ABNORMAL) Comprehensive metabolic panel (08/04/2024 12:20 PM TERMINAL OPERATIONS SUPERVISOR) [facility] Glucose 153(H) 65 - 99 mg/dL [facility] Comment: Fasting reference interval For someone without known diabetes, a glucose value >125 mg/dL indicates that they may have diabetes and this should be confirmed with a follow-up test. BUN 20 7 - 25 mg/dL [facility] Creatinine 1.22 0.70 - 1.30 mg/dL [facility] eGFR 70 > OR = 60 mL/min/1.7 3m2 [facility] BUN/creat ratio SEE NOTE: 6 - 22 (calc) [facility] Comment: Not Reported: BUN and Creatinine are within reference range. Sodium 140 135 - 146 mmol/L [facility] Potassium, pl 4.5 3.5 - 5.3 mmol/L [facility] Chloride 104 98 - 110 mmol/L [facility] CO2 31 20 - 32 mmol/L [facility] Calcium 9.6 8.6 - 10.3 mg/dL [facility] Protein, sr 6.6 6.1 - 8.1 g/dL [facility] Albumin 4.3 3.6 - 5.1 g/dL [facility] GLOBULIN 2.3 1.9 - 3.7 g/dL (calc) [facility] Alb/glob ratio 1.9 1.0 - 2.5 (calc) [facility] Bilirubin, total 1.1 0.2 - 1.2 mg/dL [facility] Alk phos 45 35 - 144 U/L [facility] AST 47(H) 10 - 35 U/L [facility] ALT (SGPT) 48(H) 9 - 46 U/L [facility] Blood 08/04/2024 12:2 0 PM TERMINAL OPERATIONS SUPERVISOR 08/04/2024 12:21 PM TERMINAL OPERATIONS SUPERVISOR Mally Escalona MD LAB BLOOD ORDERABLES Final Result [facility] [address] [place] [address] * Stool DNA - Cologuard (03/26/2024 7:20 AM CDT) Stool DNA - Cologuard Negative Negative Progression (CLIA #:[id number]) Comment: NEGATIVE TEST RESULT. A negative Cologuard [...] (Mitchell Bourgeois al, N Engl J Med 2014;370(14):4353-3174) The normal value (reference range) for this assay is negative. COLOGUARD RE-SCREENING RECOMMENDATION: Periodic colorectal cancer screening is an important part of preventive healthcare for asymptomatic individuals at average risk for colorectal cancer. Following a negative Cologuard result, the [place] [employer] Society and U.S. Multi-Society Task Force screening guidelines recommend a Cologuard re-screening interval of 3 years. References: [place] [employer] Guideline for Colorectal Cancer Screening: https://www.cancer.org/cancer/okttm-mhrrio-hrkqsg/cnfqkcooq-ddhbwvume-ububsiy/ac s-rec ommendations.html.; Alexx DK, Benny FAIRBANKS, Delaney FrenchK, Colorectal Cancer Screening: Recommendations for Physicians and Patients from the U.S. Multi-Society Task Force on Colorectal Cancer Screening , Am J Gastroenterology 2017; 112:5811-2914. TEST DESCRIPTION: Composite algorithmic analysis of stool [...] colonoscopy. (Mitchell Armstrong, N Engl J Med 2014;370(14):9253-0075.) Cologuard may produce a false negative or false positive result (no colorectal cancer or precancerous polyp present at colonoscopy follow up). A negative Cologuard test result does not guarantee the absence of CRC or advanced adenoma (pre-cancer). The current Cologuard screening interval is every 3 years. ([place] [employer] and U.S. Multi-Society Task Force). Cologuard performance data in a 10,000 patient pivotal study using colonoscopy as the reference method can be accessed at the following location: www.[employer]/results. Additional description of the Cologuard test process, warnings and precautions can be found at www.cologuard.com. Stool 03/26/2024 7:20 AM CDT 03/27/2024 10:17 AM CDT Drew Dyer MD LAB BODY FLUIDS AND STOO LS ORDERABLES Final Result Performing Organization Address City/[facility]/ZIP Co de Phone Number [employer] (CLIA #:[id number]) [place] [address] * Hepatitis C antibody (08/14/2021 1:15 PM TERMINAL OPERATIONS SUPERVISOR) Pathologist [facility] Hep C Ab Nonreactive Nonreactive [facility] Comment:Antibodies to HCV no t detected. Does NOT exclude the possibility of recent exposure to HCV. Blood 08/14/2021 1:15 PM TERMINAL OPERATIONS SUPERVISOR 08/14/2021 4:48 PM TERMINAL OPERATIONS SUPERVISOR Evans Nieto MD LAB MICROBIOLOGY - GENERAL ORDER RENNY Edited Result - Final Performing Organization Address City/[facility]/ZIP Co de Phone Number [facility] [address] [facility] [place] [address] * PSA screen (09/07/2020 9:50 AM TERMINAL OPERATIONS SUPERVISOR) Pathologist [facility] PSA 1.5 0.0 - 4.0 ng/mL [facility] - 01 Comment: Kayla ECLIA methodology. According to the [place] [employer], Serum PSA should decrease and [...] disease. Blood specimen (specimen) 09/07/2020 9:50 AM TERMINAL OPERATIONS SUPERVISOR 09/07/2020 Narrative [facility] - 09/08/2020 8:12 AM TERMINAL OPERATIONS SUPERVISOR Performed at: [address] [place] [id number] Oven Press Tender: Rodney Torres PhD, Phone: [phone] Drew Dyer MD LAB BLOOD ORDERABLES Fin al Result Performing Organization Address [facility] de Phone Number LABCO [facility] - 01 * TSH (09/07/2020 9:50 AM TERMINAL OPERATIONS SUPERVISOR) [facility] TSH 1.380 0.450 - 4.500 uIU/mL [facility] - 01 Blood specimen (specimen) 09/07/2020 9:50 AM TERMINAL OPERATIONS SUPERVISOR 09/07/2020 Narrative [facility] - 09/08/2020 8:12 AM TERMINAL OPERATIONS SUPERVISOR Performed at: [address] [place] [id number] Oven Press Tender: Rodney Torres PhD, Phone: [phone] Drew Dyer MD LAB BLOOD ORDERABLES Fin al Result Performing Organization Address [facility] de Phone Number [facility]MIRP [facility] - 01 from Last 3 Months or Most Recently Relevant to Health Maintenance Insurance [phone] [id number] (Work) [address] [place] [address] [employer] [facility] CHOICE [facility] HMO/PPO Address: [address] [address] [place] [address] [employer] [place]ICE [place] [facility] CHOICE [facility] [facility] CHOICE PLUS [facility] HMO/PPO Address: [address] [address] [place] [address] Care Teams Log Buyer Relationship Specialty Start Date End Date Drew Dyer MD [address] [facility] [address] [address] PCP - General Endocrinology Diabetes & Metabolism 09/07/20
--- OUTSIDE RECORDS SUMMARY | 2024-11-15 08:34 | XMS_ITS | Continuity of Care Document ---
Author Organization [facility] Address [address] [place] [address] [address] [place] [address] Phone Care Team Providers Care Tree Driller Name Role Phone Mcdonald OD, Jonathan Unavailable Unavailable Advance Directives Directive Yes / No Effective Date File Name No Information Encounters Encounter Description Practice Location Reason(s) For Visit Diagnoses Date Provider Providers Copied on Encounter [facility], [address], [place], [place], [id number], [place] tel:[phone] [address] [facility] No Information 7-200 6 Mcdonald OD Jonathan. [address] , [address], [place], [address], [place]. tel:[phone] Family History Family Member Type Diagnosis Age At Onset No Information Payers Payer name Insurance type Covered alliance party ID Authoriza tion(s) No Information Social History Type Description Quantity Date Captured Comments Sex Male Smoking Status No Information Chief Complaint And Reason For Visit No Information Reason For Referral Reason For Referral No Information History Of Present Illness Encounter Date Complaint History Of Prese nt Illness No Information Functional Status Date Functional Assessmen t No Information Instructions Date Instruction Additional Infor mation No Information Assessments Type Assessment Date No Information Patient Care Teams Name Effective Dates (start - stop) Status Members No Information
--- OUTSIDE RECORDS SUMMARY | 2024-11-15 08:34 | XMS_ITS | Clinical Summary ---
Author Organization [facility] Address [address] [place] [address] Care Team Providers Care Learning Operations Specialist Name Role Phone Unavailable Primary Care Provider Unavailabl e Social History Tobacco Use Types Packs/Day Years Used Date Smoking Tobacco: Never Assessed Sex and Gender Information Value Date Recorded Sex Assigned at Not on file Legal Sex Male 8:27 PM CDT Gender Identity Not on file Sexual Orientation Not on file Last Filed Vital Signs Vital Sign Reading Time Taken Comments Blood Pressure 136/76 11/05/2012 9:17 AM PEDIATRIC NEPHROLOGIST Pulse 117 11/05/2012 9:17 AM PEDIATRIC NEPHROLOGIST Temperature - - Respiratory Rate - - Oxygen Saturation - - Inhaled Oxygen Concentration - - Weight 93.9 kg (207 lb) 11/05/2012 9:17 AM PEDIATRIC NEPHROLOGIST Height - - Body Mass Index - - Plan of Treatment Health Maintenance Due Date Last Done Comments Colorectal Cancer Screening Colonoscopy (10 Years) 1967 Annual Physical 1970 Hepatitis C 1985 DTaP, Tdap and Td Vaccines ( 1 - Tdap) 1986 Hepatitis B Vaccines (1 of 3 - 19+ 3-dose series) 1986 Zoster Vaccines (1 of 2) 2017 COVID-19 Vaccine ( - 2023-2 5 season) 2024 Influenza Adult (#1) 2024 Meningococcal B Vaccine Aged Out No l onger eligible based on patient's age to complete this topic Meningococcal Vaccine Aged Out No shyanne corazon eligible based on patient's age to complete this topic Pneumococcal Vaccine: Pediat rics (0 to 5 Years) and At-Risk Patients (6 to 64 Years) Aged Out No longer eligible b ased on patient's age to complete this topic RSV Immunizations Under 20 Months Aged Out No longer eligible based on patient's age to complete this topic
--- OUTSIDE RECORDS SUMMARY | 2024-11-15 08:37 | XMS_ITS | Continuity of Care Document ---
Author Organization [facility] Address [address] [place] [address] [address] [place] [address] Phone Care Team Providers Care Fancy Packer Name Role Phone Mcdonald OD, Jonathan Unavailable Unavailable Advance Directives Directive Yes / No Effective Date File Name No Information Encounters Encounter Description Practice Location Reason(s) For Visit Diagnoses Date Provider Providers Copied on Encounter [facility], [address], [place], [place], [id number], [place] tel:[phone] [address] [facility] No Information 7-200 6 Mcdonald OD Jonathan. [address] [facility] [place] , [address], [place], [address], [place]. tel:[phone] Family History Family Member Type Diagnosis Age At Onset No Information Payers Payer name Insurance type Covered green party ID Authoriza tion(s) No Information Social [...]
[2024-11-15 09:00] LABS: EDCOVIDSCREEN Negative (Negative); EDINFLUASCREEN Positive (Negative); EDINFLUBSCREEN Negative (Negative)
== END 2024-11-15 08:58 | disposition home or self-care (01) ==
PROVIDERS: Emergency Provider Nurse Practitioner; PCP Internal Medicine Endocrinology, Diabetes & Metabolism
DX: J10.1 Influenza due to other identified influenza virus with other respiratory manifestations (principal); Z20.822 Contact with and (suspected) exposure to COVID-19; E78.00 Pure hypercholesterolemia, unspecified
CPT/HCPCS: 71046; 87426; 87804; 99213; G0463